=== PATIENT | male | born 1970 | race Asian ===

== ENCOUNTER → 2021-04-05 | Outpatient (CLI) | payer OTHER ==
[2016-06-03 18:49] VITALS: BP 134/84
[~2021-04-05] MED LIST: BUTA1CAP29 PO; NAPR-682 PO
--- NOTE | 2021-04-05 15:51 | CARD ---
MR#: [id number] Date of Study: 04/05/2021 Ordering Physician: MARIA A ETIENNE, Referring Physician: MARIA A ETIENNE, Tech: Barb Sears [facility] APPROVED REPORT EXAM: Two-dimensional and M-mode echocardiogram with Doppler and color Doppler. Other Information Quality : AverageHR: 67bpm Rhythm : NSR INDICATION RISK FACTORS Hypertension Obesity Hyperlipidemia 2D DIMENSIONS RVDd4.8 (2.9-3.5cm)Left Atrium(2D)3.1 (1.6-4.0cm) IVSd1.1 (0.7-1.1cm)Aortic Root(2D)3.0 (2.0-3.7cm) LVDd4.5 (3.9-5.9cm)LVOT Diameter1.9 (1.8-2.4cm) PWd0.9 (0.7-1.1cm)LVDs2.4 (2.5-4.0cm) FS (%) 45.6 %SV69.9 ml LVEF(%)77.1 (>50%) Aortic Valve AoV Peak Thanh.217.5cm/sAoV VTI44.4cm AO Peak GR.18.9mmHgLVOT Peak Thanh.181.7cm/s AO Mean GR.8mmHgAVA (VMAX)2.32cm2 Mitral Valve MV E Eitmftba489.0cm/sMV DECEL QOMU771yw MV A Pxwzhowb138.9cm/sE/A Ratio1.0 Pulmonary Valve PV Peak Lhduxqlv820.4cm/s Tricuspid Valve TR P. Lkaiotdp472hb/sTR Peak Gr.38mmHg LEFT VENTRICLE The left ventricle is normal size. There is normal left ventricular wall thickness. The left ventricu lar systolic function is normal. The ejection fraction is 60-65%. There is normal LV segmental wall m otion. The left ventricular diastolic function and filling is normal for age. RIGHT VENTRICLE The right ventricle is moderately dilated. There is normal right ventricular wall thickness. The righ t ventricular systolic function is normal. ATRIA The left atrium is mildly dilated. The right atrium is moderately dilated. The interatrial septum is intact with no evidence for an atrial septal defect or patent foramen ovale as noted on 2-D or Dopple r imaging. AORTIC VALVE The aortic valve is normal in structure and function. Doppler and Color Flow revealed no significant aortic regurgitation. There is no significant aortic valvular stenosis. MITRAL VALVE The mitral valve is normal in structure and function. There is no evidence of mitral valve prolapse. There is no mitral valve stenosis. Doppler and Color-flow revealed trace to mild mitral regurgitation . TRICUSPID VALVE The tricuspid valve is normal in structure and function. Doppler and Color Flow revealed mild tricusp id regurgitation. Estimated PAP 45 mmHg. PULMONIC VALVE The pulmonary valve is normal in structure and function. Doppler and Color Flow revealed mild pulmoni c valvular regurgitation. GREAT VESSELS The aortic root is normal in size. The ascending aorta is normal in size. The IVC is dilated and scott apses >50% with inspiration. PERICARDIAL EFFUSION There is no evidence of significant pericardial effusion. Critical Notification Critical Value: No <Conclusion> The left ventricular systolic function is normal. The ejection fraction is 60-65%. There is normal LV segmental wall motion. The right ventricle is moderately dilated. Trace to mild mitral regurgitation. Mild tricuspid regurgitation. Estimated PAP 45 mmHg. There is no evidence of significant pericardial effusion. Signed by : Ian Eller, Electronically Approved : 04/05/2021 15:50:38
== END ==
LOC: ECHO 08:37
PROVIDERS: ATTEND Physician Assistant Medical
DX: I08.3 Combined rheumatic disorders of mitral, aortic and tricuspid valves (principal); R06.01 Orthopnea; Q21.1 Atrial septal defect
CPT/HCPCS: 93306